=== PATIENT | male | born 1990 | race Caucasian/White ===

== ENCOUNTER 2017-03-14 21:25 | Inpatient (IN) | payer OTHER ==
[~2017-03-14] VITALS: Ht 165.1 cm; Wt 70.3 kg
[2017-03-14] MEDS ORDERED: MILLIPRED DP5 MG (21:39)
[2017-03-14] MEDS ORDERED: VASOFLEX SOFTG1 EACH (21:39)
[2017-03-14] MEDS ORDERED: SOLU-MEDRO125 MG/2 M (21:39)
== END 2017-03-17 13:09 | disposition home or self-care (01) | DRG 60 ==
LOC: ER 21:25 → MEDI 03-15 09:35
PROC: B030ZZZ Magnetic Resonance Imaging (MRI) of Brain (ICD-10-PCS; principal; 2017-03-15)
PROC: B030Y0Z Magnetic Resonance Imaging (MRI) of Brain using Other Contrast, Unenhanced and Enhanced (ICD-10-PCS; 2017-03-15)
PROC: BR30ZZZ Magnetic Resonance Imaging (MRI) of Cervical Spine (ICD-10-PCS; 2017-03-15)
PROC: BR37ZZZ Magnetic Resonance Imaging (MRI) of Thoracic Spine (ICD-10-PCS; 2017-03-15)
PROC: BR39ZZZ Magnetic Resonance Imaging (MRI) of Lumbar Spine (ICD-10-PCS; 2017-03-15)
PROC: BR30Y0Z Magnetic Resonance Imaging (MRI) of Cervical Spine using Other Contrast, Unenhanced and Enhanced (ICD-10-PCS; 2017-03-15)
PROC: BR3 Imaging, Axial Skeleton, Except Skull and Facial Bones, Magnetic Resonance Imaging (MRI) (ICD-10-PCS; 2017-03-15)
PROC: BR3 Imaging, Axial Skeleton, Except Skull and Facial Bones, Magnetic Resonance Imaging (MRI) (ICD-10-PCS; 2017-03-15)
PROC: BR39Y0Z Magnetic Resonance Imaging (MRI) of Lumbar Spine using Other Contrast, Unenhanced and Enhanced (ICD-10-PCS; 2017-03-15)
DX: G35 Multiple sclerosis (principal); H91.3 Deaf nonspeaking, not elsewhere classified
CPT/HCPCS: 70551; 70552; 72141; 72142; 72147; 72149; 72157; 72158